=== PATIENT | male | born 1990 | race African-American/Black ===

== ENCOUNTER 2018-05-26 09:19 | Day surgery (SDC) | payer OTHER ==
[2018-05-19 10:46] LABS: HEMATOCRIT 44.2 % (37.9-51.0); HEMOGLOBIN 15.4 g/dL (13.5-17.0); MEAN CORPUSCULAR HEMOGLOBIN 32.2 pg (27.0-33.4); MEAN CORPUSCULAR HGB CONC 34.9 g/dL (32.0-36.0); MEAN CORPUSCULAR VOLUME 92 fl (80-97); PLATELET COUNT 210 10^3/uL (150-450); RED CELL DISTRIBUTION WIDTH 12.9 % (11.5-14.0); WHITE BLOOD COUNT 4.1 10^3/uL (4.0-10.5)
[2018-05-19 10:46] LABS: APPEARANCE,URINE CLEAR; BILIRUBIN,URINE NEGATIVE (NEGATIVE); COLOR,URINE YELLOW; GLUCOSE, URINE NEGATIVE (NEGATIVE); KETONES,URINE NEGATIVE (NEGATIVE); LEUKOCYTE ESTERASE,URINE NEGATIVE (NEGATIVE); NITRITE,URINE NEGATIVE (NEGATIVE); PROTEIN,URINE NEGATIVE (NEGATIVE); UROBILINOGEN,URINE NEGATIVE mg/dL (<2.0)
[2018-05-19 11:21] LABS: ANION GAP 8 (5-19); BLOOD UREA NITROGEN 10 mg/dL (7-20); CALCIUM 9.9 mg/dL (8.4-10.2); CARBON DIOXIDE 31 mmol/L (22-30); CHLORIDE 104 mmol/L (98-107); GLUCOSE 87 mg/dL (75-110); POTASSIUM 4.7 mmol/L (3.6-5.0); SODIUM 142.7 mmol/L (137-145)
[~2018-05-26 09:19] MED LIST: ACETAMINOPHEN 1,000 MG/100 ML RTUPB IV ONE; CEFAZOLIN 2 GM/D5W RTU 2 GM/50 ML RTUPB IV ONE; CEFAZOLIN 2 GM/D5W RTU 2 GM/50 ML RTUPB IV PRN; DEXAMETHASONE SOD PHOSPHATE INJ 4 MG/1 ML VIAL ONE; FENTANYL CITRATE INJ/PF 250 MCG/5 ML AMPULE ONE; GLYCOPYRROLATE 1 MG/5 ML SYRINGE ONE; KETOROLAC TROMETHAMINE 60 MG/2 ML SDV ONE; LACTATED RINGERS 1000 ML IV PRN; LIDOCAINE 0.5% INJ-PF (5 MG/ML) 50 ML SDV SUBCUT PRN; LIDOCAINE 2% INJ-PF (20 MG/ML) 10 ML AMPUL ONE; MIDAZOLAM 2 MG/2 ML INJ ONE; NEOSTIGMINE METHYLSULFATE 10 MG/10 ML VIAL ONE; ONDANSETRON HCL INJ/PF 4 MG/2 ML SDV ONE; PROPOFOL INJ 200 MG/20 ML VIAL IV ONE; ROCURONIUM BROMIDE INJ 50 MG/5 ML VIAL IV ONE; SUCCINYLCHOLINE CHLORIDE INJ 200 MG/10 ML VIAL ONE
[2018-05-26] MEDS ORDERED: MIDAZOLAM 2 MG/2 ML INJ ONE ×2 (10:15→14:38)
[2018-05-26] MEDS ORDERED: FAMOTIDINE INJ/PF 20 MG/2 ML SDV IV ONE (10:15)
[2018-05-26] MEDS ORDERED: RINGERS SOLUTION,LACTATED 1,000 ML IV PRN (10:30)
[2018-05-26] MEDS ORDERED: RINGERS SOLUTION,LACTATED 500 ML IV ONE (10:30)
[2018-05-26] MEDS ORDERED: BUPIVACAINE HCL 0.5 % INJ/PF 30 ML SDV ONE (10:33)
[2018-05-26] MEDS ORDERED: DIPHENHYDRAMINE HCL 50 MG/ML VIAL IV PRN (12:51)
[2018-05-26] MEDS ORDERED: ONDANSETRON HCL INJ/PF 4 MG/2 ML SDV IV PRN ×2 (12:51→14:25)
[2018-05-26] MEDS ORDERED: MEPERIDINE HCL/PF INJ 25 MG/1 ML DISP.SYRIN IV PRN (12:51)
[2018-05-26] MEDS ORDERED: PROMETHAZINE HCL INJ 25 MG/1 ML VIAL IV PRN ×2 (12:51)
[2018-05-26] MEDS ORDERED: MORPHINE SULFATE 10 MG/ML INJ IV PRN ×2 (12:51→14:25)
[2018-05-26] MEDS ORDERED: FENTANYL CITRATE INJ/PF 100 MCG/2 ML AMPUL IV PRN ×3 (12:51)
[2018-05-26] MEDS ORDERED: OXYCODONE-ACETAMINOPHEN 5-325 MG TABLET PO PRN (14:25)
--- NOTE | 2018-05-26 14:45 | Discharge Summary ---
Discharge Summary (SDC) - Discharge Final Diagnosis: Right elbow loose bodies Date of Surgery: 05/26/18 Discharge Date: 05/26/18 Condition: Good Treatment or Instructions: Procedure In Detail: Patient was seen and evaluated in the preoperative holding area. The upper extremity was initialized and marked. Patient received 2g of Ancef IV for bacterial prophylaxis. Patient was taken back to the operative room where transferred to the operative table and placed under general anesthesia. Once they were adequately anesthetized a nonsterile tourniquet was placed on the upper extremity. A surgical team debriefing was performed ensuring all instrumentation was available, the surgical procedure was discussed with possible concerns reviewed. The upper extremity was prepped with chlorhexidine and alcohol and draped in a sterile fashion. A timeout was done identifying correct patient, procedure and extremity everyone in attendance agree with this and verbalized no concerns. The extremity was exsanguinated the tourniquet was inflated to 250 mmHg. Schedule Follow Up w/ Dr. Denny Yu @ [facility] to be seen in 10-14 days or as scheduled [place]: [place]: [place]: May remove dressing on postop day #3, keep incision covered and dry. Ice and elevate May begin finger range of motion attempting to make full fist. Stool softener of choice when on pain medication. USE OF IFGL-CDY-UALHLDS IBUPROFEN: Ibuprofen (Advil, Nuprin, Medipren, Motrin IB) is a medication for fever and pain control. In addition, it has anti- inflammatory effects which may be beneficial, especially in the treatment of injuries. It's best to take ibuprofen with food. Persons with ulcer disease or allergy to aspirin should notify their physician of this before taking ibuprofen. Ibuprofen can be given every four to six hours, for a total of four doses daily. Age Pain or fever dose Antiinflammatory dose 6-8 yr 200 mg (1 tab) 200 mg (1 tab) 9-11 yr 200 mg (1 tab) 200-400 mg (1-2 tab) 11-14 yr 200-400 mg (1-2 tab) 400 mg (2 tab) 15-adult 400 mg (2 tab) 600 mg (3 tab) ORAL NARCOTIC MEDICATION: You have been given a prescription for pain control. This medication is a narcotic. It's best taken with food, as nausea can result if taken on an empty stomach. Don't operate machinery or drive within six hours of taking this medication. Do not combine this medicine with alcohol, or with any medication which can cause sedation (such as cold tablets or sleeping pills) unless you get permission from the physician. Narcotics tend to cause constipation. If possible, drink plenty of fluids and eat a diet high in fiber and fruits. Please be aware that prescription narcotics also have the potential for abuse. People become addicted to these medications because of the general sense of wellbeing that they induce. This feeling along with a significant reduction in tension, anxiety, and aggression provides a stimulating seductive quality to these drugs. Once your pain is under control, we encourage you to discard your unused narcotics. Prescriptions: Ketorolac Tromethamine [Toradol 10 mg Tablet] 10 mg PO Q8HP PRN #12 tablet PRN Reason: Oxycodone HCl/Acetaminophen [Percocet 5-325 mg Tablet] 1 tab PO Q6 PRN #25 tab PRN Reason: Referrals: JOSEMANUEL LEMUS DO [Primary Care Provider] - Respiratory Treatments at Home: Deep Breathing/Coughing Discharge Activity: No Lifting Over 10 Pounds, No Lifting/Push/Pulling Report the Following to Your Physician Immediately: Fever over 101 Degrees, Unusual Bleeding, Redness, Swelling, Warmth, Increased Soreness
--- NOTE | 2018-05-26 14:50 | Operative Report ---
Operative Report DATE OF SURGERY: 05/26/18 PREOPERATIVE DIAGNOSIS: Right elbow loose bodies, impingement, contracture POSTOPERATIVE DIAGNOSIS: Same OPERATION: Right elbow arthroscopy with extensive debridement, capsular release w/ removal of loose bodies SURGEON: DARLENE BASILIO ANESTHESIA: GA COMPLICATIONS: None ESTIMATED BLOOD LOSS: Minimal PROCEDURE: Indication for above procedure: 27-year-old male with history of catching and locking in his right elbow. He also developed inability to fully straighten his elbow and worsening pain. Pat ient MRI demonstrating loose bodies and impingement. At that point we discussed treatment options including operative versus nonoperative intervention. Risks and benefits were explained patient verbalized understanding consented for the procedure. Procedure In Detail: Patient was seen and evaluated in the preoperative holding area. The RIGHT upper extremity was initialized and marked. Patient received 2g of Ancef IV for bacterial prophylaxis. Patient was taken back to the operative room where transferred to the operative table and placed under general anesthesia. Once they were adequately anesthetized a nonsterile tourniquet was placed on the upper extremity. Patient was placed in the lateral position. Bony prominences carefully padded and cervical spine placed in a neutral position A surgical team debriefing was performed ensuring all instrumentation was available, the surgical procedure was discussed with possible concerns reviewed. The upper extremity was prepped with ChloraPrep and draped in a sterile fashion. A timeout was done identifying correct patient, procedure and extremity everyone in attendance agree with this and verbalized no concerns. The extremity was exsanguinated the tourniquet was inflated to 250 mmHg. The joint was insufflated with 20 cc of saline within the soft spot. A proximal anterior medial portal was established 2 cm proximal and 2 cm anterior to the medial epicondyle palpating the medial intermuscular septum. This was also palpated with a hemostat. Blunt dissection was performed with a hemostat through the soft tissues and arthroscope introduced into the joint. A proximal anterior lateral portal was established 2 cm proximal and distal to the lateral epicondyle. This was established via triangulation and then blunt dissection performed and cannula placed. Diagnostic arthroscopy demonstrated significant adhesions to the capsule with synovitis. There was multiple loose bodies within the joint. The capsule was then carefully released by elevating off the anterior aspect of the humerus with a trocar once adequate released notable improved visualization was noted.. A portion of the capsule was excised along its lateral border. 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 Once adequate capsular release and visualization was performed the loose bodies were removed. A small chondral defect was noted along the capitellum approximately 2 mm x 2 mm and chondroplasty performed. Partial synovectomy was performed as well. With a 2 mm bur and osteophyte along the distal tip of the coronoid was excised. Further inspection demonstrated no evidence of residual loose bodies within the joint. A total of 5 loose bodies were found anteriorly size ranging from approximately 1 mm x 1 mm to 2 mm x 2 mm Posterior arthroscopy was performed establishing a midline portal 4 cm proximal to the olecranon and a posterior lateral portal 3 cm proximal to the olecranon. Debridement was performed within the olecranon fossa adhesions were excised., The loose bodies within the olecranon fossa which were adequately excised. A 2 mm kim was then utilized to contour the olecranon fossa. Once bony debridement was complete there is no evidence of residual impingement of the olecranon within the olecranon fossa. At completion patient had full passive extension and flexion. Four loose bodies were removed measuring 10 mm x 10mm to 2 mm x 2 mm. Skin incision was closed with interrupted 4-0 nylon suture. 30 cc of 0.5% bupivacaine without epinephrine was injected for postoperative pain control. Wound was dressed Xeroform 4 x 4's and patient was placed in a soft dressing. Tourniquet was deflated patient had good peripheral perfusion.
[2018-05-26] MEDS: FENTANYL CITRATE INJ/PF 100 MCG/2 ML AMPUL ONE ×2 (14:55→15:00)
[2018-05-26] MEDS: HYDROMORPHONE HCL INJ/PF 2 MG/ML AMPULE ONE ×2 (15:05→15:15)
[2018-05-26] MEDS ORDERED: HYDROMORPHONE HCL INJ/PF 2 MG/ML AMPULE IV PRN (15:17)
[2018-05-26] MEDS ORDERED: LIDOCAINE 2% INJ (20 MG/ML) 20 ML MDV ONE (15:44)
[2018-05-26] MEDS ORDERED: LIDOCAINE 2%/EPINEPHRINE INJ 20 ML VIAL ONE (15:44)
[2018-05-26] MEDS ORDERED: ROPIVACAINE HCL 0.5% INJ/PF (5 MG/1 ML) 30 ML SDV ONE (15:47)
[2018-05-26 17:55] VITALS: BP 151/86
== END 2018-05-26 18:20 | disposition home or self-care (01) ==
LOC: OROUT 09:19
PROVIDERS: ATTEND Orthopaedic Surgery
DX: M24.021 Loose body in right elbow (principal); M24.521 Contracture, right elbow; M25.821 Other specified joint disorders, right elbow; F17.210 Nicotine dependence, cigarettes, uncomplicated; Z01.818 Encounter for other preprocedural examination
CPT/HCPCS: 36415; 85027; 80048; 81001; 29838; 29834; 24006; J2795; J2250; J3490 ×6; J1100; J1885; J3010 ×2; J1170; J0330; J2405; J2704; S0028; J0690; J0131; 1740